=== PATIENT | female | born 1965 | race Caucasian/White ===

== ENCOUNTER 2018-07-08 22:10 | Observation (INO) | payer SELFPAY ==
--- NOTE | 2018-07-08 23:08 | PDOC.FPRHP ---
- History of Present Illness Chief Complaint: Cough, dyspnea History of Present Illness: Pt 53 yo F with PMH meth use who presents for cough and SOB x2 weeks. She transfered from [place] ED after she had nonspecific t wave changes seen on EKG. She states her symptoms began about the same time she last used methamphetamine 2 weeks ago. She reports rhinorrhea, nasal congestion, and sore throat as well as headache. She reports 2 weeks ago she had upper chest burning she attributed to GERD, denies CP today, reports occasional palpitations. She was treated 1 week ago with 5d course of antibiotics for CAP. In the ED, repeat EKG was similar: T wave inversions V1-V6. CXR showed pneumonia RML infiltrate vs atelectasis. WBC mildly elevated at 11.2. D dimer neg. BNP and trop neg x1. LA normal. - Allergies/Adverse Reactions Allergies Allergy/AdvReac Type Severity Reaction Status Date / Time codeine Allergy Verified 01/23/14 20:30 - Home Medications Medication Instructions Recorded Confirmed Type No Known 07/09/18 07/09/18 History - History PMHx: overdose on xanax (suicide attempt), GERD, anxiety with panic attacks PSHx: tubla ligation, appendectomy, tonsillectomy FHx: father of [place] age 59 Social: quit smoking 1 month ago, smoked .75 for 30 yrs. 24 PY hx. Alcohol: 12-18 beers once weekly Methamphetamine last used 2 weeks ago - Review of Systems General: denies: fever/chills, weight/appetite/sleep changes Eyes: denies: eye pain, vision changes ENT: reports: nasal congestion, rhinorrhea, other (sore throat) Respiratory: reports: cough, congestion, shortness of breath Cardiovascular: reports: palpitation. denies: chest pain, edema Gastrointestinal: reports: constipation. denies: nausea, vomiting, diarrhea, abdominal pain, GI bleeding Genitourinary: denies: dysuria, other (hematuria) Skin: denies: rashes, lesions Musculoskeletal: denies: pain, tenderness Neurological: denies: numbness, syncope, seizure, weakness Psychological: reports: anxiety (with panic attacks). denies: depression - Vital signs BP: [123/82] HR: [93] RR: [18] Tmax: [98.8] Pox: [98]% on [RA] Wt: [68 kg] - Physical Exam Constitutional: NAD, awake, alert and oriented HEENT: normocephalic and atraumatic, PERRLA, conjunctiva clear, MMM, oropharynx clear Neck: supple, no LAD Heart: RRR, normal S1/S2, no murmurs/rubs/gallops Lungs: CTAB, no respiratory distress, good air movement, no rales/rhonchi Abdomen: soft, non-tender, bowel sounds present Musculoskeletal: normal structure, normal tone Neurological: no focal deficit, normal sensation Skin: no rash/lesions, good turgor, capillary refill <2 seconds Heme/Lymphatic: no unusual bruising or bleeding, no purpura Psychiatric: normal mood and affect, good judgment and insight, intact recent and remote memory FMR H&P: Results - EKG Interpretation EKG: T wave inversions V1-V6, stable from EKG in [place] - Radiology Interpretation Chest x-ray Status: image reviewed by me, report reviewed by me Additional comment: concern for RML infiltrate vs ateletasis FMR H&P: A/P - Problem List (1) Nonspecific ST-T wave electrocardiographic changes Current Visit: Yes Status: Acute Code(s): R94.31 - ABNORMAL ELECTROCARDIOGRAM [ECG] [EKG] (2) SIRS (systemic inflammatory response syndrome) Current Visit: Yes Status: Acute Code(s): R65.10 - SIRS OF NON-INFECTIOUS ORIGIN W/O ACUTE ORGAN DYSFUNCTION (3) COPD exacerbation Current Visit: Yes Status: Acute Code(s): J44.1 - CHRONIC OBSTRUCTIVE PULMONARY DISEASE W (ACUTE) EXACERBATION (4) Methamphetamine abuse Current Visit: Yes Status: Acute Code(s): F15.10 - OTHER STIMULANT ABUSE, UNCOMPLICATED (5) Tobacco abuse Current Visit: Yes Status: Chronic Code(s): Z72.0 - TOBACCO USE (6) Alcohol abuse Current Visit: Yes Status: Chronic Code(s): F10.10 - ALCOHOL ABUSE, UNCOMPLICATED - Plan Non-specific EKG changes - Transfer from [place] for EKG abnormalities, no prior EKG before then - No CP currently, remote suprasternal burning chest pain 2 weeks ago - Heart score 4; Father of HI in 50s - NPO at midnight, stress in AM - AM FLP to risk stratify - TSH pending SIRS 2/2 COPD exacerbation - No dx of COPD, recommend outpt PFTs - WBC 11.2, P 93 - Duonebs MARIAELENA - Solumedrol (07/08) then prednisone, 5 day course steroids - Azithromycin 07/08, 5 day course - Procal negative Recently tx for pneumonia outpt - CXR showed possible pneumonia that is most likely residual, pt already treated - Procal negative Meth abuse - Aware, UDS neg Hx tobacco abuse (quit 1 mo), - Aware Alcohol abuse -Aware, binge drinks 1/weekly Diet: Regular DVT ppx: lovenox GI ppx: none Code : FULL PCP: none Eun Pineda MD PGY-1 FMR H&P: Upper Level - Pertinent history 53 yo WF PMH tobacco abuse and meth use. Presents with CC of cough, congestion, and intermittent substernal chest burning for the past 2-3 weeks. Was seen in urgent care clinic last week and dx with CAP and treated with "a z-pack and some other antibiotic." States she quit smoking 1 month ago. Former meth user who quit 2 years ago but used once 2 weeks ago. ER: Labs, EKG, CXR, ASA. - Pertinent findings Vitals: WNL GEN: NAD CV: RRR, No murmr Pulm: CTA-B, normal effort. CXR: small RML infiltrate Labs: Trop negative x2 EKG: T-wave inversions lateral leads. - Plan Date/Time: 07/08/18 1127 I, Randy Barry MD, have evaluated this patient and agree with findings/plan as outlined by [employer] internship resident. Pertinent changes/additions are listed here. 1. Acute COPD Exacercerbation 06/13 CAP: Procal negative, no abx. Patient has been appropriately treated and I suspect this is related to mild irritation from the recent infection. Will give scheduled duoneb Q6hr and a dose of solumedrol 125 mg then switch to PO prednisone for 4 days. 2. Early depolarization changes on EKG: HEART score 4. NM Stress test tomorrow. 3. Hx tobacco abuse: encouraged continued cessation 4. Hx Meth abuse: UDS negative. Encouraged continued cessation. 5. Diet: NPO for stress. 6. PPx: none 7. CODE: FULL Dispo: obs, Tele, <[address] Brown.
[2018-07-09 01:11] VITALS: BMI 24.3
[2018-07-09] MEDS ORDERED: Bacteriostatic Water 30 ML VIAL FS PRN (01:14)
[2018-07-09] MEDS ORDERED: methylPREDNISolone Sod Succ/PF 125 MG/2 ML VIAL IVP SCH (01:15)
[2018-07-09] MEDS ORDERED: Enoxaparin Sodium 40 MG/0.4 ML SYRINGE SC SCH ×2 (01:15→21:00)
[2018-07-09 02:49] LABS: Troponin I Less than 0.010 ng/mL (< 0.028)
[2018-07-09 02:51] LABS: Cardiac Risk 3.5 (Less than 4.5)
[2018-07-09 05:18] LABS: Troponin I Less than 0.010 ng/mL (< 0.028)
[2018-07-09] MEDS ORDERED: predniSONE 20 MG TAB PO SCH (08:00)
[2018-07-09] MEDS ORDERED: Famotidine 20 MG TAB PO SCH (09:00)
[2018-07-09] MEDS ORDERED: Regadenoson 0.4 MG/5 ML SYRINGE ONE (10:05)
[2018-07-09 10:36] VITALS: BP 112/68
[2018-07-09 12:08] VITALS: TEMP 98.1
--- NOTE | 2018-07-09 14:14 | NM ---
MYOCARDIAL EFFUSION AND QUANTITATIVE GATED SPECT STUDY: HISTORY: Chest pain. DOSE: 27.0 mCi of Technetium 99m Cardiolite for the stress portion of the exam and 9 mCi for the resting po rtion of the exam. The patient was stressed using 0.4 mg of LexiScan given IV. Images demonstrate no evidence of areas of reversible defect seen in the myocardium. No evidence of myocardial ischemia or scar seen. Ejection fraction measures 85%. No evidence of left ventricular w all abnormality is seen. IMPRESSION: Normal myocardial perfusion and quantitated gated SPECT study. POS: MARCUS
--- NOTE | 2018-07-09 19:02 | HP ---
HISTORY OF PRESENT ILLNESS: I have examined the patient. I have discussed the case with Dr. Eun Pineda and agree with her assessment and plan. Briefly, Ms. Gimenez is a 53-year-old white female, admitted with a possible exacerbation of COPD. She was admitted with shortness of breath and treated with oral prednisone and DuoNeb. By the next day, she looks and felt much better. PHYSICAL EXAMINATION: GENERAL: On her exam, she is awake and alert this morning, in no distress. Awake, alert, and oriented. VITAL SIGNS: Her blood pressure is 120/80, her heart rate is 80, respirations are 16, she is afebrile, her room air pulse ox is 98%. EAR, NOSE AND THROAT: No erythema, no exudate. NECK: Her neck is supple. CARDIAC: The PMI is in the 5th intercostal space, midclavicular line. No gallop or murmur noted. LUNGS: Her lungs are clear with diminished breath sounds. No rales or wheezes. No use of accessory muscles. ABDOMEN: Flat and soft. SKIN: No edema. NEUROLOGICAL: No focal deficits. LABORATORY DATA: Troponins are all less than 0.01. Her triglycerides are 237. Cholesterol is 223. HDL is 63. PLAN: She is really improving, will be likely be discharge later today. We are also trending her troponins, which were negative and we will perform stress test given some atypical chest pain. Job ID: [id number]
[2018-07-10] MEDS ORDERED: predniSONE 20 MG TAB PO SCH (08:00)
--- NOTE | 2018-07-10 10:54 | DIS ---
DATE OF ADMISSION: 07/09/2018 DATE OF DISCHARGE: 07/09/2018 ADMITTING ATTENDING: Feng Brown MD. RESIDENT: Ilan Diane DO. CONSULT: None. PROCEDURES: Nuclear medicine stress test, normal myocardial perfusion study. PRIMARY DIAGNOSIS: Pleuritis secondary to COPD exacerbation. SECONDARY DIAGNOSES: Methamphetamine abuse, history of tobacco abuse and alcohol abuse. DISCHARGE MEDICATIONS: 1. Prednisone 40 mg p.o. daily for four days. 2. Guaifenesin 600 mg p.o. b.i.d. 3. Fluticasone propionate one nasal spray per nares b.i.d. DISCONTINUED MEDICATIONS: None. BRIEF HISTORY OF PRESENT ILLNESS/HOSPITAL COURSE: This is a 53-year-old female with past medical history as above, who presented with cough, shortness of breath x2 weeks. One week ago, she completed treatment for CAP with azithromycin. States that she continued to have shortness of breath. At outside ER, she was found to have a nonspecific EKG changes. At our ER, the patient was found to have negative troponins x3. The patient underwent a stress test, which turned out to be negative as above. The patient encouraged to follow up with PCP for further cardiac evaluation if needed. DISPOSITION: Stable. DISCHARGE INSTRUCTIONS: 1. Location: Home. 2. Diet: Heart healthy. 3. Activity: As tolerated. 4. Follow up with out-of-town PCP in 7 days. Job ID: [id number]
== END 2018-07-09 17:23 | disposition home or self-care (01) ==
LOC: ERS 22:10 → 2NO 07-09 00:37
PROVIDERS: ADMIT Family Medicine; ATTEND Family Medicine
DX: J44.1 Chronic obstructive pulmonary disease with (acute) exacerbation (principal); R09.1 Pleurisy; R94.31 Abnormal electrocardiogram [ECG] [EKG]; R65.10 Systemic inflammatory response syndrome (SIRS) of non-infectious origin without acute organ dysfunction; F15.10 Other stimulant abuse, uncomplicated; Z88.5 Allergy status to narcotic agent; Z79.51 Long term (current) use of inhaled steroids; Z87.891 Personal history of nicotine dependence
CPT/HCPCS: 36415; 78452; 80061; 84145; 84443; 84484; 93005; 93017; 94640; 94760; 96372; 96374; A9500; G0378; J1650; J2785; J2930; J7620

== ENCOUNTER 2021-01-30 14:41 | Outpatient (CLI) | payer OTHER, SELFPAY | END 2021-01-30 14:42 | disposition home or self-care (01) | LOC: BICRAD 14:41 | PROVIDERS: ATTEND Internal Medicine | DX: Z02.71 Encounter for disability determination (principal); M47.812 Spondylosis without myelopathy or radiculopathy, cervical region | CPT/HCPCS: 71046; 72040 ==